=== PATIENT | male | born 1995 | race Caucasian/White ===

== ENCOUNTER 2018-04-16 02:28 | Emergency (ER) | payer OTHER ==
[~2018-04-16] VITALS: Ht 185.4 cm; Wt 78.1 kg
[2018-04-16 02:32] VITALS: Ht 185.4 cm; Wt 78.1 kg
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
[2018-04-16 03:01] LABS: BASO % 1.3 %; BASO ABS # 0.08 K/uL (0-0.2); EOS % 8.1 %; EOS ABS # 0.49 K/uL (0-0.5); HEMATOCRIT 42.7 % (42-52); HEMOGLOBIN 14.5 g/dL (14.0-18.0); IG# 0.01 K/uL (0.00-0.02); LYMPH % 46.2 %; MEAN CELL VOLUME 85.6 fL (80-100); MEAN CORPUSCULAR HEMOGLOBIN 29.1 pg (25-34); MEAN PLATELET VOLUME 8.7 fL (7.4-10.4); MONO % 6.6 %; NEUT % 37.6 %; NEUT ABS # 2.28 K/uL (1.4-6.5); PLATELET COUNT 237 K/uL (130-400); RED CELL DISTRIBUTION WIDTH CV 12.9 % (11.5-14.5); WHITE BLOOD COUNT 6.06 K/uL (4.8-10.8)
[2018-04-16 03:28] LABS: ALBUMIN 4.1 gm/dl (3.4-5.0); CALCIUM 8.6 mg/dl (8.5-10.1); CREATININE 1.06 mg/dl (0.60-1.40); POTASSIUM 3.9 mmol/L (3.5-5.1); TOTAL PROTEIN 7.9 gm/dl (6.4-8.2)
[2018-04-16] MEDS ORDERED: ALPR1TAB3 PO (03:48)
[2018-04-16 05:30] VITALS: BP 105/77; PULSE 86; TEMP 36.7; O2SAT 100
== END 2018-04-16 05:36 | disposition home or self-care (01) ==
LOC: C.EDB 02:30 → C.EDA 05:36
DX: R45.1 Restlessness and agitation (principal); T40.5X1A Poisoning by cocaine, accidental (unintentional), initial encounter; S60.812A Abrasion of left wrist, initial encounter; S60.811A Abrasion of right wrist, initial encounter; X83.8XXA Intentional self-harm by other specified means, initial encounter; F41.9 Anxiety disorder, unspecified; F32.9 Major depressive disorder, single episode, unspecified